=== PATIENT | female | born 1970 | race Caucasian/White ===

== ENCOUNTER 2018-11-30 09:59 | Outpatient (CLI) | payer OTHER ==
[~2018-11-30] VITALS: Ht 152.4 cm; Wt 65.3 kg
[2018-11-30] MEDS ORDERED: QVAR7.3 GM INH (14:33)
[2018-11-30] MEDS ORDERED: VENTOLIN HFA18 GM INH (14:33)
[2018-11-30] MEDS ORDERED: VITAMIN D1000 UNI1 ORAL (14:33)
[2018-11-30] MEDS ORDERED: LEXAPRO20 MG ORAL (14:33)
[2018-11-30] MEDS ORDERED: FERROUS SULFAT325 MG ORAL (14:33)
[2018-11-30 14:34] VITALS: BP 127/86
--- NOTE | 2018-11-30 15:30 | Consultation ---
DATE OF CONSULTATION: 11/30/2018 CONSULTING PHYSICIAN: Sandeep Ramirez M.D. CHIEF COMPLAINT: Screening colonoscopy evaluation, iron deficiency anemia. PAST MEDICAL HISTORY: 1. UTI. 2. Asthma. 3. Depression. PAST SURGICAL HISTORY: and tonsillectomy. MEDICATIONS: Lexapro, iron, Diovan, vitamin D. FAMILY HISTORY: Father had bladder cancer. Mother had breast cancer. SOCIAL HISTORY: Social drinker. Otherwise, no IV drug abuse. No tobacco abuse. ALLERGIES: To sago. REVIEW OF SYSTEMS: A 10-point review of systems was performed and pertinent positives in HPI. PHYSICAL EXAMINATION: VITAL SIGNS: Temperature 97.6, blood pressure 127/86, pulse 75, respirations 20. HEENT: Normocephalic and atraumatic. Sclerae anicteric. NECK: Supple. No evidence of lymphadenopathy. CARDIOVASCULAR: Regular rate and rhythm. Plus S1 and S2. No obvious murmur. LUNGS: Clear to auscultation bilaterally. ABDOMEN: Positive bowel sounds. Soft and nontender. No rebound. No guarding. No peritoneal sign. EXTREMITIES: No cyanosis. No clubbing. No edema. ASSESSMENT AND PLAN: This is a 48-year-old female with iron deficiency anemia. The patient definitely needs a screening colonoscopy given her age. Also given her iron deficiency anemia, may benefit from endoscopy. The patient was given the instruction for colonoscopy prep prep. She watched the video for colonoscopy. We are going to obtain authorization for EGD and colonoscopy and schedule her then. Sandeep Ramirez M.D. DR: BHARAT JOB#: [id number] CC:
== END 2018-11-30 11:59 | disposition home or self-care (01) ==
LOC: PAN 09:59
DX: D50.9 Iron deficiency anemia, unspecified (principal); F32.9 Major depressive disorder, single episode, unspecified; Z88.8 Allergy status to other drugs, medicaments and biological substances; Z80.52 Family history of malignant neoplasm of bladder; Z80.3 Family history of malignant neoplasm of breast